=== PATIENT | female | born 1985 | race Caucasian/White ===

== ENCOUNTER 2017-11-25 19:08 | Outpatient (CLI) | payer MEDICAID | END 2017-11-25 19:09 | disposition critical access hospital (66) | LOC: EMS 19:08 | PROVIDERS: ATTEND Surgery | DX: R06.02 Shortness of breath (principal) | CPT/HCPCS: A0425; A0427 ==

== ENCOUNTER 2017-11-25 19:23 | Emergency (ER) | payer MEDICAID ==
--- NOTE | 2017-11-25 20:15 | ED Physician Documentation ---
PD HPI DYSPNEA - Stated complaint Stated Complaint: SOA, CHEST TIGHTNESS - Chief complaint Chief Complaint: Resp - History obtained from History obtained from: Patient - History of Present Illness Timing - onset: Today Timing - onset during: Light activity Timing - details: Gradual onset, Waxing and waning Inciting event(s): Out of meds. No: URI, Allergic rxn/anaphylaxis Improved by: Inhaler/neb Similar symptoms before: Diagnosis (asthma) Recently seen: Not recently seen Review of Systems Constitutional: denies: Fever, Chills Nose: denies: Rhinorrhea / runny nose, Congestion Throat: denies: Sore throat Cardiac: denies: Chest pain / pressure, Palpitations Respiratory: reports: Dyspnea, Cough, Wheezing GI: denies: Abdominal Pain, Nausea, Vomiting, Diarrhea PD PAST MEDICAL HISTORY - Past Medical History Past Medical History: Yes Respiratory: Asthma Psych: Other Other Past Medical History: Methadone clinic for IV drug use history. - Past Surgical History Past Surgical History: Yes - Present Medications Home Medications: Ambulatory Orders Medication Instructions Recorded Confirmed Albuterol 2.5 mg INH Q4H PRN #30 neb 11/25/17 Albuterol Sulf [Ventolin Hfa 1 - 2 puffs INH Q4HR PRN #1 inhaler 11/25/17 Inhaler] Dexamethasone [Decadron] 4 mg PO DAILY #5 tablet 11/25/17 Fluticasone 220 Mcg [Flovent] 1 puffs INH BID #1 inhaler 11/25/17 - Allergies Allergies/Adverse Reactions: Allergies Allergy/AdvReac Type Severity Reaction Status Date / Time No Known Drug Allergies Allergy Verified 11/25/17 20:40 - Social History Does the pt smoke?: Yes Does the pt have substance abuse?: No Substance Use and Type: Heroin - Immunizations Immunizations are current?: Yes PD ED PE NORMAL - Vitals Vital signs reviewed: Yes - General General: Alert and oriented X 3, No acute distress, Well developed/nourished - HEENT HEENT: Ears normal, Pharynx benign - Neck Neck: Supple, no meningeal sign, No adenopathy - Cardiac Cardiac: RRR (tachy), No murmur - Respiratory Respiratory: No respiratory distress. No: Clear bilaterally (wheezing bilaterally) - Abdomen Abdomen: Soft, Non tender - Derm Derm: Normal color, Warm and dry, No rash - Extremities Extremities: No tenderness to palpate, Normal ROM s pain, No edema, No calf tenderness / cord - Neuro Neuro: Alert and oriented X 3, No motor deficit, Normal speech Results - Vitals Vitals: Oxygen O2 Source Room air Oxygen Flow Rate 2 PD MEDICAL DECISION MAKING - ED course Complexity details: considered differential (seems asthma exac and is out of her usual meds for neb and mdi; does not use regular steroids.), d/w patient Departure - Departure Disposition: 01 Home, Self Care Clinical Impression: Acute asthma exacerbation Qualifiers: Asthma severity: mild Asthma persistence: intermittent Qualified Code(s): J45.21 - Mild intermittent asthma with (acute) exacerbation Condition: Stable Record reviewed to determine appropriate education?: Yes Prescriptions: Albuterol Sulf [Ventolin Hfa Inhaler] 1 - 2 puffs INH Q4HR PRN #1 inhaler PRN Reason: Shortness Of Air/Wheezing Albuterol 2.5 mg INH Q4H PRN #30 neb PRN Reason: Wheezing Dexamethasone [Decadron] 4 mg PO DAILY #5 tablet Fluticasone 220 Mcg [Flovent] 1 puffs INH BID #1 inhaler Comments: Drink lots of fluids. Use your albuterol nebulizer or inhaler 4 times a day for the next week and then extra times as needed. Decadron steroid daily for the next 5 days. Then start using the Flovent steroid inhaler twice daily for a month. Recheck if not improving over the next few days and return sooner if worse. Discharge Date/Time: 11/25/17 21:12
[2017-11-25] MEDS ORDERED: ALBUTEROL NEB 2.5 MG/3 ML INH STA (20:26)
[2017-11-25] MEDS ORDERED: CETIRIZINE 10 MG TABLET PO STA (20:26)
[2017-11-25] MEDS ORDERED: DEXAMETHASONE 10 MG/ML VIAL PO STA (20:26)
[2017-11-25] MEDS ORDERED: CHERRY SYRUP 10 ML UDC PO ONE (20:39)
[2017-11-25 21:12] VITALS: BP 102/64
== END 2017-11-25 21:12 | disposition home or self-care (01) ==
LOC: ED 19:23
DX: J45.21 Mild intermittent asthma with (acute) exacerbation (principal)
CPT/HCPCS: 94640; 99283; A9270; J7613